=== PATIENT | female | born 1935 | race Two or more races ===

== ENCOUNTER → 2021-11-27 | Day surgery (SDC) | payer MEDICARE, OTHER ==
[2021-11-22 10:23] LABS: Basophils # (auto) 0.1 10 ^3/uL (0-0.2); Basophils % (auto) 1.7 % (0.0-2.0); Eosinophils # (auto) 0.1 10 ^3/uL (0-0.8); Eosinophils % (auto) 1.6 % (0.0-7.0); Hemoglobin 13.6 g/dL (12.2-16.2); Lymphocytes # (auto) 2.3 10 ^3/uL (0.4-5.4); Lymphocytes % (auto) 28.2 % (10.0-50.0); Mean Corpuscular Hemoglobin 28.6 pg (28.0-32.0); Mean Corpuscular Hgb Conc. 33.2 g/dL (32.0-36.0); Mean Corpuscular Volume 86.2 fL (80.0-100.0); Monocytes # (auto) 0.6 10 ^3/uL (0-1.3); Monocytes % (auto) 7.3 % (0.0-12.0); Neutrophils % (auto) 61.2 % (37.0-80.0); Red Blood Cells 4.76 10^6/uL (4.0-5.20); White Blood Cell 8.1 10^3/uL (4.4-10.8)
[2021-11-22 10:36] LABS: INR 0.99 (0.9-1.15); Partial Thromboplastin Time 26.3 sec (23.6-33.0)
[2021-11-22 10:42] LABS: Urine Bacteria FEW /hpf (None Seen); Urine Blood Negative /uL (Negative); Urine Specific Gravity 1.018 (1.001-1.035); Urine WBC 1 /hpf (0 - 5)
[2021-11-22 10:44] LABS: Albumin 3.8 g/dL (3.4-5.0); Calcium 9.2 mg/dL (8.5-10.1); Potassium 4.7 mmol/L (3.5-5.1)
[2021-11-22 10:46] LABS: BUN/Creatinine Ratio 18.2; Bilirubin, Total 0.4 mg/dL (0.2-1.0); Total Protein 7.4 g/dL (6.4-8.2)
[~2021-11-27] VITALS: Ht 160 cm; Wt 59.0 kg
[~2021-11-27] MED LIST: BUPIVACAINE HCL 50 ML ONE; GABA300C10 PO; HYDROmorphone HCL 2 MG/ML VL IV PRN; LEVO75TA6 PO; LIDOCAINE 2% (LOCAL ANESTH.) PF 5ml SDV ONE; MIDAZOLAM HCL 2MG/2ML 2ml VIAL (1mg/ml) ONE; ONDANSETRON HCL 4 MG/2 ML VIAL IV PRN; ONDANSETRON HCL 4 MG/2 ML VIAL ONE; PROPOFOL 10 MG/ML 20 ML IV ONE; SIMV40TA2 PO; ceFAZolin 1GM/50ML 100 ML IV ONE; fentaNYL CITRATE 100 MCG/2 ML VL ONE
[2021-11-27 10:00] VITALS: BP 151/74
== END | disposition home or self-care (01) ==
LOC: SUR 06:34
PROVIDERS: ATTEND Orthopaedic Surgery Sports Medicine
DX: M67.432 Ganglion, left wrist (principal); E03.9 Hypothyroidism, unspecified; E78.5 Hyperlipidemia, unspecified; G62.9 Polyneuropathy, unspecified; Z98.890 Other specified postprocedural states; Z79.899 Other long term (current) drug therapy; Z20.822 Contact with and (suspected) exposure to COVID-19
CPT/HCPCS: 25111; 36415; 80053; 81001; 85025; 85610; 85730; 88305; J0690; J2001; J2250; J2405; J2704; J3010; J3490; U0003

== ENCOUNTER 2024-06-21 06:10 | Inpatient (IN) | payer MEDICARE, OTHER ==
[2024-06-21] VITALS (9 sets, daily range): BP systolic 110–139; BP diastolic 63–74; PULSE 63–80; RESP 15–18; TEMP 97.2–97.7; O2SAT 93–100
[~2024-06-21] VITALS: Ht 160 cm; Wt 66.2 kg
[~2024-06-21 06:10] MED LIST changes: -BUPIVACAINE HCL 50 ML ONE; +DICL50TA2 PO; +GABA-1250 PO; -GABA300C10 PO; -HYDROmorphone HCL 2 MG/ML VL IV PRN; -LIDOCAINE 2% (LOCAL ANESTH.) PF 5ml SDV ONE; -MIDAZOLAM HCL 2MG/2ML 2ml VIAL (1mg/ml) ONE; -ONDANSETRON HCL 4 MG/2 ML VIAL IV PRN; -ONDANSETRON HCL 4 MG/2 ML VIAL ONE; -PROPOFOL 10 MG/ML 20 ML IV ONE; -SIMV40TA2 PO; +SIMV40TA42 PO; -ceFAZolin 1GM/50ML 100 ML IV ONE; -fentaNYL CITRATE 100 MCG/2 ML VL ONE
[2024-06-21] MEDS ORDERED: GENTAMICIN SULFATE 80 MG in D5W 5% 100 ML IV ONE (06:45)
[2024-06-21] MEDS: TRANEXAMIC ACID 0 ML ONE (06:48)
[2024-06-21] MEDS: CELECOXIB 100 MG CAP ONE (06:55)
[2024-06-21] MEDS: PREGABALIN CAPSULE 75 MG CAP ONE (06:57)
[2024-06-21] MEDS: PREGABALIN CAPSULE 75 MG CAP PO ONE (07:00)
[2024-06-21] MEDS ORDERED: ONDANSETRON HCL 4 MG/2 ML VIAL IV PRN ×2 (07:00→07:45)
[2024-06-21] MEDS: CELECOXIB 100 MG CAP PO ONE (07:00)
[2024-06-21] MEDS: ACETAMINOPHEN IV 1000 MG/100ML (10MG/ML) IV ONE (07:00)
[2024-06-21] MEDS ORDERED: HYDROmorphone HCL 2 MG/ML VL/or syr IV PRN ×4 (07:00→16:30)
[2024-06-21] MEDS ORDERED: NITROGLYCERIN 0.4 MG SL TAB SL PRN (07:00)
[2024-06-21] MEDS: ceFAZolin 1GM/50ML 50 ML IV SCH (07:00)
[2024-06-21] MEDS ORDERED: MORPHINE SULFATE INJ 2 MG/ml SYRG IV PRN (07:00)
[2024-06-21] MEDS: LACTATED RINGER'S 1,000 ML IV SCH (07:00)
[2024-06-21] MEDS ORDERED: fentaNYL CITRATE 100 MCG/2 ML VL ONE (07:11)
[2024-06-21] MEDS ORDERED: MIDAZOLAM HCL 2MG/2ML 2ml VIAL (1mg/ml) ONE (07:11)
[2024-06-21] MEDS: TETRACAINE 1% INJ 2 ML VIAL IJ ONE (07:12)
[2024-06-21] MEDS ORDERED: PROPOFOL 10 MG/ML 20 ML IV ONE (07:12)
[2024-06-21] MEDS: TRANEXAMIC ACID 20 ML ONE (07:14)
[2024-06-21] MEDS: CEFEPIME 1GM/ 50ML 50 ML IV ONE (07:14)
[2024-06-21] MEDS: ceFAZolin 2 GM/D5W100ml 100 ML IV ONE (07:14)
[2024-06-21] MEDS ORDERED: DexAMETHasone SOD PHOS 10MG/1ML VIAL INJ IV PRN (07:45)
[2024-06-21] MEDS ORDERED: hydrALAZINE HCL 20 MG/ML VL IV PRN (07:45)
[2024-06-21] MEDS ORDERED: MORPHINE SULFATE 4 MG/ML SYR/VIAL IV PRN (07:45)
[2024-06-21] MEDS ORDERED: MIDAZOLAM HCL 2MG/2ML 2ml VIAL (1mg/ml) IV PRN (07:45)
[2024-06-21] MEDS ORDERED: ePHEDrine SULFATE 50 MG/ML AMP IV PRN (07:45)
[2024-06-21] MEDS: KETOROLAC TROMETH 30 MG/ML 1ML VIAL ONE (08:13)
[2024-06-21] MEDS: MORPHINE SULF PF 5 MG/10 ML VIAL ONE (08:13)
[2024-06-21] MEDS: BUPIVACAINE 0.25% INJ 50ML VIAL ONE (08:13)
[2024-06-21] MEDS: VANCOMYCIN HCL 1000 MG VL ONE (08:15)
[2024-06-21] MEDS ORDERED: CEFEPIME 1GM/ 50ML 50 ML IV SCH (10:00)
[2024-06-21] MEDS: ENOXAPARIN SOD 40 MG/0.4 ML SYRINGE SC SCH (10:00)
[2024-06-21] MEDS ORDERED: PHENYLEPHRINE HCL 10 MG/ML VL IV ONE (13:06)
[2024-06-21] MEDS: GABAPENTIN 300 MG CAP PO SCH (13:11)
[2024-06-21] MEDS: SODIUM CHLOR 0.9% PF (SALINE LOCK) 10ML VIAL/SYR IV SCH (13:15)
[2024-06-21] MEDS: PRAVASTATIN SODIUM 20 MG TAB PO SCH (22:28)
[2024-06-22] VITALS (19 sets, daily range): BP systolic 100–128; BP diastolic 46–120; PULSE 56–96; RESP 15–18; TEMP 97.3–98.1; O2SAT 93–98
[2024-06-22] MEDS: LEVOTHYROXINE SODIUM 25 MCG TAB PO SCH (06:16)
[2024-06-22 07:03] LABS: Hematocrit 32.2 % (36.0-46.0); Hemoglobin 10.7 g/dL (12.2-16.2)
[2024-06-22 07:25] LABS: Alanine Aminotransferase 25 U/L (7-40); Albumin 3.7 g/dL (3.2-4.8); Alkaline Phosphatase 62 U/L (46-116); Anion Gap 6 (5-15); Aspartate Aminotransferase 33 U/L (13-40); Bilirubin, Total 0.4 mg/dL (0.2-1.0); Blood Urea Nitrogen 14 mg/dL (9-23); Calcium 9.4 mg/dL (8.7-10.4); Carbon Dioxide 27 mmol/L (20-31); Chloride 107 mmol/L (98-107); Glucose 112 mg/dL (74-106); Potassium 4.9 mmol/L (3.5-5.1); Sodium 140 mmol/L (136-145); Total Protein 5.6 g/dL (5.7-8.2)
[2024-06-22] MEDS: CEFEPIME 1GM/ 50ML 50 ML IV SCH (08:41)
[2024-06-22] MEDS: LACTATED RINGER'S 1,000 ML IV SCH (10:15)
[2024-06-22 12:18] LABS: Urine Bacteria None Seen /hpf (None Seen)
[2024-06-22 12:32] LABS: Urine Blood Negative /uL (Negative); Urine Clarity Clear (Clear); Urine Color Light-Yellow (Yellow); Urine Protein, UAD Negative (Negative); Urine Specific Gravity 1.007 (1.001-1.035); Urine Urobilinogen Normal (Negative); Urine WBC 1 /hpf (0 - 5)
[2024-06-22] MEDS: HYDROcodone-ACET 5/325MG TAB PO PRN (15:59)
[2024-06-22] MEDS: BISACODYL 5 MG EC TAB PO PRN (21:32)
[2024-06-23 01:00] VITALS: BP 90/53; PULSE 73; RESP 18; TEMP 97.5; O2SAT 94
[2024-06-23 05:00] VITALS: BP 110/53; PULSE 81; RESP 20; TEMP 98.8; O2SAT 96
[2024-06-23 07:10] LABS: Hematocrit 32.4 % (36.0-46.0); Hemoglobin 10.8 g/dL (12.2-16.2)
[2024-06-23 08:38] VITALS: BP 103/45; PULSE 89; RESP 16; TEMP 98.1; O2SAT 92
[2024-06-23] MEDS: ACETAMINOPHEN IV 100 ML IV ONE (08:49)
[2024-06-23] MEDS: ONDANSETRON HCL 4 MG/2 ML VIAL IV ONE (09:04)
[2024-06-23 11:24] VITALS: BP 95/41; PULSE 91; RESP 19; TEMP 98.3; O2SAT 99
[2024-06-23 16:52] VITALS: BP 114/49; PULSE 89; RESP 18; TEMP 99.6; O2SAT 96
[2024-06-23 20:44] VITALS: BP 105/57; PULSE 89; RESP 16; TEMP 97.9; O2SAT 97
[2024-06-24] VITALS (7 sets, daily range): BP systolic 96–114; BP diastolic 45–78; PULSE 80–106; RESP 14–18; TEMP 97.9–99.4; O2SAT 93–98
[2024-06-24 06:47] LABS: Hematocrit 35.3 % (36.0-46.0); Hemoglobin 11.7 g/dL (12.2-16.2)
[2024-06-25] VITALS (8 sets, daily range): BP systolic 52–135; BP diastolic 50–71; PULSE 78–99; RESP 15–16; TEMP 97.6–98.6; O2SAT 94–97
[2024-06-26 00:44] VITALS: BP 120/61; PULSE 80; RESP 16; TEMP 97.7; O2SAT 96
[2024-06-26 05:00] VITALS: BP 117/60; PULSE 64; RESP 16; TEMP 97.8; O2SAT 96
[2024-06-26 07:52] VITALS: BP_SYST 123; BP_SYST 124; BP_DIAS 60; BP_DIAS 68; PULSE 44; PULSE 89; RESP 16; RESP 18; TEMP 98.4; TEMP 98.6; O2SAT 100
[2024-06-26 12:51] VITALS: BP 112/61; PULSE 52; RESP 18; TEMP 98.6; O2SAT 96
== END 2024-06-26 13:07 | disposition home health service (06) | DRG 470 ==
LOC: SUR 06:10 → OVERFLOW 07:01 → TELE 08:41 → TELE-EAST 11:22 → EAST 06-22 23:48
PROVIDERS: ADMIT Orthopaedic Surgery Adult Reconstructive Orthopaedic Surgery; ATTEND Internal Medicine
PROC: 0SR90JZ Replacement of Right Hip Joint with Synthetic Substitute, Open Approach (ICD-10-PCS; principal; 2024-06-21 07:14)
DX: M16.11 Unilateral primary osteoarthritis, right hip (principal); E78.5 Hyperlipidemia, unspecified; E03.9 Hypothyroidism, unspecified; G57.82 Other specified mononeuropathies of left lower limb; Z79.899 Other long term (current) drug therapy
CPT/HCPCS: 36415; 72170; 73502; 80053; 81001; 84443; 85014; 85018; 86850; 86900; 86901; 97110; 97116; 97163; 97530; G0378; J0131; J1885; J2250; J2704; J3490; J7060